=== PATIENT | female | born 1975 | race Caucasian/White ===

== ENCOUNTER 2020-04-03 10:38 | Emergency (ER) | payer OTHER ==
[2020-04-03 10:42] VITALS: RESP 18; TEMP 98.1
--- NOTE | 2020-04-03 11:46 | ED ---
General Adult HPI - General Chief complaint: Recheck/Abnormal Lab/Rx Stated complaint: Med Refill Time Seen by Provider: 04/03/20 10:46 Source: patient, RN notes reviewed, old records reviewed Mode of arrival: ambulatory Limitations: no limitations - History of Present Illness Initial comments: 44-year-old female patient presents to ED for evaluation. Patient reports that she is homeless. Patient states that she is attempting to check into [facility]. Patient states that she has a history of asthma. She is requesting that she has an inhaler refilled prior to checking into rehab. Patient also reports that she told the rehabilitation facility that she used to be on Zoloft and now they are not letting her go back until she has a prescription for this. She denies any physical complaints or any suicidal or homicidal ideations. Denies any chance of . Systemic: Pt denies fatigue, fever/chills, rash. Pt denies weakness, night sweats, weight loss. Neuro: Pt denies headache, visual disturbances, syncope or pre-syncope. HEENT: Pt denies ocular discharge or irritation, otalgia, rhinorrhea, pharyngitis or notable lymphadenopathy. Cardiopulmonary: Pt denies chest pain, SOB, heart palpitations, dyspnea on exertion. Abdominal/GI: Pt denies abdominal pain, n/v/d. : Pt denies dysuria, burning w/ urination, frequency/urgency. Denies new onset urinary or bowel incontinence. MSK: Pt denies myalgia, loss of strength or function in extremities. Neuro: Pt denies new onset weakness, paresthesias. - Related Data Previous Rx's Medication Instructions Recorded Albuterol Inhaler [Ventolin Hfa 1 puff INHALATION RT-QID PRN #1 04/03/20 Inhaler] inhaler Allergies Allergy/AdvReac Type Severity Reaction Status Date / Time Sulfa (Sulfonamide Allergy Unknown Verified 04/03/20 10:42 Antibiotics) Review of Systems ROS Statement: Those systems with pertinent positive or pertinent negative responses have been documented in the HPI. ROS Other: All systems not noted in ROS Statement are negative. Past Medical History Additional Past Medical History / Comment(s): gallstones, stomach ulcer History of Any Multi-Drug Resistant Organisms: None Reported Past Surgical History: Tubal Ligation Past Psychological History: Bipolar, Depression Smoking Status: Current every day smoker Past Alcohol Use History: Occasional Past Drug Use History: Cocaine, Marijuana General Exam - General Exam Comments Initial Comments: Constitutional: NAD, AOX3, Pt has pleasant affect. HEENT: NC/AT, trachea midline, neck supple, no lymphadenopathy. Posterior pharynx non erythematous, without exudates. External ears appear normal, without discharge. Mucous membranes moist. Eyes PERRLA, EOM intact. There is no scleral icterus. No pallor noted. Cardiopulmonary: RRR, no murmurs, rubs or gallops, no JVD noted. Lungs CTAB in anterior and posterior lyons. No peripheral edema. Abdominal exam: Abdomen soft and non-distended. Abdomen non-tender to palpation in all 4 quadrants. Bowel sounds active in LLQ. No hepatosplenomegaly. No ecchymosis Neuro: CN II-XII grossly intact. No nuchal rigidity. No raccon eyes, no downing sign, no hemotympanum. No cervical spinal tenderness. MSK: Full active ROM in upper and lower extremities, 5/5 stregnth. Limitations: no limitations Course Vital Signs 04/03/20 04/03/20 10:40 12:15 Temperature 98.1 F Pulse Rate 84 87 Respiratory 18 18 Rate Blood Pressure 118/75 123/72 O2 Sat by Pulse 100 99 Oximetry Medical Decision Making - Medical Decision Making 44-year-old female patient to ED. She is requesting Ventolin inhaler refill. She reports that revealed patient facility will not let her go back until they have a prescription for Zoloft for her. History taking as well as pharmacy check patient it appears that she has not been prescribed Zoloft in over 5 years.I will fill the inhaler however any further psychiatric medications must be prescribed by her primary care provider or by a psychiatrist. Pt is denying suicidal or homicidal complaints, denying any psychiatric complaints. Patient is comfortable with plan. Patient discharged with follow-up with primary care provider and will return with any worsening symptoms. Case discussed with Dr. Rdz. Disposition Clinical Impression: Encounter for medication refill Disposition: HOME SELF-CARE Condition: Stable Instructions (If sedation given, give patient instructions): Asthma (ED) Additional Instructions: Follow up with PCP tomorrow. Return to ED with any worsening symptoms. At your request I am including the information that it appears you have not been prescribed antidepressants in over 5 years. For further information please contact Dr. Andrade. Prescriptions: Albuterol Inhaler [Ventolin Hfa Inhaler] 1 puff INHALATION RT-QID PRN #1 inhaler PRN Reason: wheezing Is patient prescribed a controlled substance at d/c from ED?: No Referrals: David Andrade MD [Primary Care Provider] - 1-2 days
[2020-04-03 12:16] VITALS: BP 123/72; PULSE 87
== END 2020-04-03 12:15 | disposition home or self-care (01) ==
LOC: EC 10:38
DX: Z76.0 Encounter for issue of repeat prescription (principal); F17.200 Nicotine dependence, unspecified, uncomplicated; Z88.2 Allergy status to sulfonamides; Z59.0 Homelessness
CPT/HCPCS: 99282